=== PATIENT | male | born 1990 | race African-American/Black ===

== ENCOUNTER 2017-11-20 15:33 | Emergency (ER) | payer SELFPAY ==
[2017-11-20] MEDS ORDERED: Bacitracin Zinc 1 Packet ONE (18:03)
[2017-11-20] MEDS ORDERED: Acetaminophen 500 MG TAB ONE (18:03)
== END 2017-11-20 18:30 | disposition home or self-care (01) ==
LOC: ERS 15:33
DX: S41.111A Laceration without foreign body of right upper arm, initial encounter (principal); J45.909 Unspecified asthma, uncomplicated; I10 Essential (primary) hypertension; F17.210 Nicotine dependence, cigarettes, uncomplicated; W25.XXXA Contact with sharp glass, initial encounter
CPT/HCPCS: 99282

== ENCOUNTER 2017-12-05 19:25 | Emergency (ER) | payer SELFPAY ==
--- NOTE | 2017-12-05 20:31 | RAD ---
AP VIEW OF THE CHEST: 12/05/17 INDICATION: History of chest pain. COMPARISON: None. IMPRESSION: No acute cardiopulmonary abnormality. COMMENTS: Lungs are clear. The cardiomediastinal silhouette is within normal limits. No pleural effusion or pne umothorax is evident. No acute osseous abnormality is evident. POS: [facility]
--- NOTE | 2017-12-16 12:09 | EKG ---
Test Reason : CHEST PAIN Blood Pressure : / mmHG Vent. Rate : 095 BPM Atrial Rate : 095 BPM P-R Int : 128 ms QRS Dur : 084 ms QT Int : 342 ms P-R-T Axes : 000 070 055 degrees QTc Int : 429 ms Normal sinus rhythm with sinus arrhythmia ST elevation, consider early repolarization, pericarditis, or injury Abnormal ECG Basic electrical rhythm Confirmed by MARTÍN BALBUENA ([id number]), design editor GIANFRANCO PLILAI ([id number] on 12/16/2017 12:09:14 PM Referred By: Confirmed By:MARTÍN BALBUENA
== END 2017-12-05 22:16 | disposition home or self-care (01) ==
LOC: ERS 19:25
DX: S29.011A Strain of muscle and tendon of front wall of thorax, initial encounter (principal); F17.210 Nicotine dependence, cigarettes, uncomplicated; J45.909 Unspecified asthma, uncomplicated; X58.XXXA Exposure to other specified factors, initial encounter
CPT/HCPCS: 71045; 93005